=== PATIENT | female | born 1995 | race Caucasian/White ===

== ENCOUNTER 2017-06-02 22:06 | Emergency (ER) | payer OTHER ==
[~2017-06-02] VITALS: Ht 180.3 cm; Wt 63.2 kg
[~2017-06-02 22:06] MED LIST: NO MEDS PER PT
[2017-06-02 22:12] VITALS: Ht 180.3 cm; Wt 63.2 kg
[2017-06-02] MEDS ORDERED: IBUP-1050 PO (22:39)
[2017-06-02] MEDS ORDERED: BCPILLS PO (22:40)
[2017-06-02 22:51] LABS: BASO % 0.2 %; BASO ABS # 0.03 K/uL (0-0.2); COMPLETE YES; EOS % 0.6 %; HEMATOCRIT 38.8 % (37-47); IG% 0.4 %; LYMPH % 14.2 %; LYMPH ABS # 1.98 K/uL (1.2-3.4); MEAN CELL VOLUME 93.3 fL (80-100); MEAN CORPUSCULAR HEMOGLOBIN 32.7 pg (25-34); MEAN CORPUSCULAR HGB CONC 35.1 g/dl (32-36); MEAN PLATELET VOLUME 9.2 fL (7.4-10.4); MONO % 5.7 %; NEUT % 78.9 %; PLATELET COUNT 332 K/uL (130-400); RED BLOOD COUNT 4.16 M/uL (4.2-5.4); WHITE BLOOD COUNT 13.93 K/uL (4.8-10.8)
[2017-06-02 22:55] LABS: POINT OF CARE TROPONIN I < 0.030 ng/ml (0-0.045)
--- NOTE | 2017-06-02 23:01 | DIAGNOSTIC IMAGING REPORT ---
CHEST 2 VIEWS ROUTINE HISTORY: 21 years-old Female left sided chest pain, acute shortness of breath COMPARISON: None available TECHNIQUE: Frontal and lateral views of the chest FINDINGS: Cardiomediastinal and hilar silhouettes are within normal limits. No pneumothorax, pleural effusion or focal airspace consolidation. The patient is slightly rotated to the right. The bones of the chest are grossly intact. IMPRESSION: No acute cardiopulmonary process. The above report was generated using voice recognition software. It may contain grammatical, syntax or spelling errors. Electronically signed by: Yung Jha M.D. 06/02/2017 11:00 PM Dictated Date/Time: 06/02/2017 10:59 PM
[2017-06-02 23:14] LABS: BUN/CREATININE RATIO 13.2 (10-20); CALCIUM 9.2 mg/dl (8.5-10.1); CREATININE 0.63 mg/dl (0.60-1.20); POTASSIUM 3.8 mmol/L (3.5-5.1)
[2017-06-02] MEDS ORDERED: LORAZEPAM 0.5 MG TAB SL STA (23:15)
[2017-06-02 23:16] LABS: PREG INTERNAL NEGATIVE QC NEG CLEAR BACKGROUND; PREG INTERNAL POSITIVE QC POS CONTROL LINE
[2017-06-02 23:24] LABS: THYROID STIMULATING HORMONE 1.46 uIu/ml (0.300-4.500)
[2017-06-03] MEDS ORDERED: LORA-741 PO (00:02)
--- NOTE | 2017-06-03 00:04 | EMERGENCY ROOM VISIT NOTE ---
History First contact with patient: 22:15 Chief Complaint: CARDIAC ASSESSMENT Stated Complaint: CHEST PAIN, TROUBLE BREATHING Nursing Triage Summary: Pt c/o left sided chest pain starting about a month ago, increases with deep breaths. Pt very anxious. History of Present Illness The patient is a 21 year old female who presents to the Emergency Room with complaints of chest pain. The patient states that she has had intermittent chest pain for the past 1.5 weeks. She reports that 1.5 weeks ago, she had an ultrasound of her left breast due to a fibroadenoma. She states that soon after that, she developed left-sided chest pain which was initially intermittent , but has become constant. She has associated shortness of breath and radiation of the pain into the shoulder. She rates her discomfort an 8/10. She does take control pills. She does not smoke. She denies any recent travel. She reports a history of mild asthma but states this does not feel like asthma flareups. She denies any family history of cardiac disease at a young age. She denies history or family history of blood clots. Review of Systems A complete 10 point review of systems was reviewed with the patient with pertinent positives and negatives as per history of present illness. All else were negative. Social History Smoking Status: Never Smoker Current/Historical Medications Scheduled Control Pills ( Control Pills), 1 TAB PO DAILY Ibuprofen (Advil), 200 MG PO DAILY Scheduled PRN Lorazepam (Ativan), 1-2 TAB PO TID PRN for Anxiety Physical Exam Vital Signs Date Time Temp Pulse Resp B/P (MAP) Pulse Ox O2 Delivery O2 Flow Rate FiO2 06/03/17 00:15 37.1 89 18 114/89 97 06/02/17 23:50 89 18 114/89 97 Room Air 06/02/17 22:48 94 Room Air 06/02/17 22:33 109 06/02/17 22:12 37.1 121 22 141/92 91 Room Air Physical Exam VITALS: Vitals are noted on the nurse's note and reviewed by myself. Vital signs stable. GENERAL: This is a 21-year-old female, very anxious appearing, well-developed well-nourished. SKIN: Capillary reflex less than 2 seconds. HEENT: Normocephalic. PERRLA. Mucous membranes moist. Neck is supple without nuchal rigidity. HEART: Tachycardic, regular rhythm without murmurs gallops or rubs. LUNGS: Clear to auscultation bilaterally without wheezes, rales or rhonchi. CHEST: No reproducible chest pain on palpation. ABDOMEN: Soft, nontender. NEURO: Patient was alert and oriented to person place and time. Medical Decision & Procedures ER Provider Diagnostic Interpretation: CHEST 2 VIEWS ROUTINE FINDINGS: Cardiomediastinal and hilar silhouettes are within normal limits. No pneumothorax, pleural effusion or focal airspace consolidation. The patient is slightly rotated to the right. The bones of the chest are grossly intact. IMPRESSION: No acute cardiopulmonary process. Laboratory Results 06/02/17 22:30 Red Blood Count 4.16, Mean Corpuscular Volume 93.3, Mean Corpuscular Hemoglobin 32.7, Mean Corpuscular Hemoglobin Concent 35.1, Mean Platelet Volume 9.2, Neutrophils (%) (Auto) 78.9, Lymphocytes (%) (Auto) 14.2, Monocytes (%) (Auto) 5.7, Eosinophils (%) (Auto) 0.6, Basophils (%) (Auto) 0.2, Neutrophils # (Auto) 10.99, Lymphocytes # (Auto) 1.98, Monocytes # (Auto) 0.80, Eosinophils # (Auto) 0.08, Basophils # (Auto) 0.03 06/02/17 22:30 Test 06/02/17 22:30 06/02/17 22:36 White Blood Count 13.93 K/uL (4.8-10.8) Red Blood Count 4.16 M/uL (4.2-5.4) Hemoglobin 13.6 g/dL (12.0-16.0) Hematocrit 38.8 % (37-47) Mean Corpuscular Volume 93.3 fL (80-100) Mean Corpuscular Hemoglobin 32.7 pg (25-34) Mean Corpuscular Hemoglobin Concent 35.1 g/dl (32-36) Platelet Count 332 K/uL (130-400) Mean Platelet Volume 9.2 fL (7.4-10.4) Neutrophils (%) (Auto) 78.9 % Lymphocytes (%) (Auto) 14.2 % Monocytes (%) (Auto) 5.7 % Eosinophils (%) (Auto) 0.6 % Basophils (%) (Auto) 0.2 % Neutrophils # (Auto) 10.99 K/uL (1.4-6.5) Lymphocytes # (Auto) 1.98 K/uL (1.2-3.4) Monocytes # (Auto) 0.80 K/uL (0.11-0.59) Eosinophils # (Auto) 0.08 K/uL (0-0.5) Basophils # (Auto) 0.03 K/uL (0-0.2) RDW Standard Deviation 45.9 fL (36.4-46.3) RDW Coefficient of Variation 13.4 % (11.5-14.5) Immature Granulocyte % (Auto) 0.4 % Immature Granulocyte # (Auto) 0.05 K/uL (0.00-0.02) Anion Gap 9.0 mmol/L (3-11) Est Creatinine Clear Calc Drug Dose 140.9 ml/min Estimated GFR () 148.6 Estimated GFR (Non- 128.2 BUN/Creatinine Ratio 13.2 (10-20) Calcium Level 9.2 mg/dl (8.5-10.1) Thyroid Stimulating Hormone (TSH) 1.460 uIu/ml (0.300-4.500) Human Chorionic Gonadotropin, Qual NEG (NEG) Bedside D-Dimer 148 ng/mlFEU (0-450) Bedside Troponin I < 0.030 ng/ml (0-0.045) Medications Administered Medications (Trade) Dose Ordered Sig/Naima Route Start Time Stop Time Status Last Admin Dose Admin Lorazepam (Ativan Tab) 0.5 mg NOW STAT SL 06/02/17 23:15 06/02/17 23:16 DC 06/02/17 23:18 0.5 MG ECG Rate (beats per minute): 109 Rhythm: sinus tachycardia Findings: RBBB (incomplete ), no acute ischemic change, no ectopy Comparison ECG Date: no prior available ED Course The patient was evaluated as above. Labs were drawn and IV access was obtained. Findings were discussed with the patient. I am suspicious that her symptoms may be related to anxiety. Patient was medicated with 0.5 mg Ativan sublingually. Patient was reevaluated and felt much better. Discharge instructions were reviewed with the patient. The patient verbalized understanding of my assessment and treatment plan and was discharged home in good condition. Medical Decision Differential diagnosis includes acute coronary syndrome, pulmonary embolism, pneumothorax, pericarditis, myocarditis, endocarditis, anxiety, musculoskeletal pain, GERD, costochondritis, pneumonia, among others. The patient is a 21-year-old female who presents today complaining of with left- sided chest pain. The patient was very anxious appearing and tachycardic on initial exam. Labs revealed mild leukocytosis which may be secondary to the stress of the situation. Glucose is mildly elevated, also likely secondary to stress. Labs were otherwise unremarkable. Patient is in a euthyroid state. Troponin is not elevated. Serum was negative. D-dimer was not elevated, and given the patient's low risk of PE, I do not feel further workup for this is necessary. EKG showed incomplete right bundle-branch block and sinus tachycardia. The patient admits to feeling anxious and had significant improvement of symptoms after treatment with sublingual Ativan. Her heart rate improved after this as well. I did recommend that the patient follow-up closely with [facility] for further evaluation of her symptoms. She was given a short course of Ativan to be used as needed for symptoms. She should return here for any concerning symptoms. The patient's case was reviewed with Dr. Thompson, ED attending physician, who agreed with my assessment and treatment plan. Based on the patient's presentation and work up, I feel the patient is stable for outpatient treatment. The patient was educated to return to the emergency department for any worsening of their current condition or new/concerning symptoms. She will follow up with [facility]. Medication Reconcilliation Current Medication List: was personally reviewed by me Blood Pressure Screening Patient's blood pressure: Normal blood pressure Impression Primary Impression: Left sided chest pain Departure Information Dispostion Home / Self-Care Condition GOOD Prescriptions Lorazepam (ATIVAN) 0.5 Mg Tab 1-2 TAB PO TID Y for Anxiety, #10 TAB Prov: Alyssa Baron ., KLAUDIA 06/03/17 Referrals [facility] (PCP) Patient Instructions My [facility] Additional Instructions For pain control, you can use the following [id number] medicines (if >12 yo): - Regular strength (325mg/tab) Tylenol (acetaminophen) 2 tabs every 4-6 hours as needed. Do not exceed 12 tablets in a 24 hour period. Avoid taking more than 4 grams (4000 mg) of Tylenol per day. This includes any other sources of acetaminophen you may take on a regular basis. - Regular strength (200 mg/tab) Advil (ibuprofen) 1-2 tabs every 4-6 hours as needed. Do not exceed a dose of 3200 mg per day. Lorazepam (Ativan): 1-2 tablets up to 3 times daily as needed for anxiety. You should follow-up with [facility] this week regarding your visit today. Return to the emergency department with worsening chest pain, worsening shortness of breath, passing out, or any other new/concerning symptoms.
[2017-06-03 00:15] VITALS: BP 114/89; PULSE 89; TEMP 37.1; O2SAT 97
== END 2017-06-03 00:17 | disposition home or self-care (01) ==
LOC: C.EDB 22:09
DX: R07.9 Chest pain, unspecified (principal); R00.0 Tachycardia, unspecified; D24.2 Benign neoplasm of left breast; I45.10 Unspecified right bundle-branch block; Z79.3 Long term (current) use of hormonal contraceptives